=== PATIENT | female | born 1970 | race Hispanic/Latino ===

== ENCOUNTER 2022-07-10 10:24 | Emergency (ER) | payer OTHER ==
[~2022-07-10] VITALS: Ht 134.6 cm; Wt 71.8 kg
[2022-07-10] MEDS ORDERED: LISINOPRIL-HCT1 EAC1 (10:59)
[2022-07-10] MEDS ORDERED: CETIRIZINE HCL10 MG (10:59)
[2022-07-10] MEDS ORDERED: LIPITOR20 MG PO (10:59)
[2022-07-10] MEDS ORDERED: OMEPRAZOLE40 MG PO (10:59)
[2022-07-10] MEDS ORDERED: MECLIZINE HCL 12.5 MG TAB PO ONE (11:15)
[2022-07-10] MEDS ORDERED: ONDANSETRON HCL 4 MG ORAL DISINTEGRATING TAB PO ONE (11:15)
[2022-07-10] MEDS ORDERED: ONDANSETRON HCL 4 MG ORAL DISINTEGRATING TAB ONE (11:55)
[2022-07-10] MEDS ORDERED: MECLIZINE HCL 12.5 MG TAB ONE (11:55)
[2022-07-10] MEDS ORDERED: ONDANSETRON ODT4 MG PO ×2 (12:14→12:20)
[2022-07-10] MEDS ORDERED: CEFDINIR300 MG PO ×2 (12:14→12:20)
[2022-07-10] MEDS ORDERED: ANTIVERT25 M1 PO ×2 (12:14→12:20)
[2022-07-10] MEDS ORDERED: POTASSIUM CHLORIDE 20 MEQ TAB CR PO ONE ×2 (12:17→12:30)
== END 2022-07-10 12:23 | disposition home or self-care (01) ==
LOC: FSED 10:32
DX: R42 Dizziness and giddiness (principal); J01.90 Acute sinusitis, unspecified; I10 Essential (primary) hypertension; E78.5 Hyperlipidemia, unspecified; K21.9 Gastro-esophageal reflux disease without esophagitis; R94.31 Abnormal electrocardiogram [ECG] [EKG]
CPT/HCPCS: 70450; 80053; 82553; 84484; 85025; 93005; 99284; J8597; Q0162